=== PATIENT | male | born 1930 | race Caucasian/White ===

== ENCOUNTER 2016-09-21 14:48 | Inpatient (IN) | payer OTHER ==
[~2016-09-21] VITALS: Ht 188 cm; Wt 78.0 kg
[2016-09-21 15:01] VITALS: BP_SYST 86
[2016-09-21] MEDS ORDERED: NS 500 ML IV ONE ×2 (15:15→17:30)
[2016-09-21 15:32] LABS: ANION GAP 7 (5-15); BASOPHILS # (AUTO) 0.1 K/uL (0.0-0.2); BASOPHILS % (AUTO) 0.3 % (0.0-2.0); CALCIUM 8.8 mg/dL (8.4-11.0); CHLORIDE 103 mmol/L (98-107); CREATININE 3.03 mg/dL (0.55-1.30); GLUCOSE 131 mg/dL (70-99); HEMATOCRIT 36.1 % (36-54); HEMOGLOBIN 12.3 g/dL (14.0-18.0); LYMPHOCYTES # (AUTO) 1.7 K/uL (1.0-5.5); LYMPHOCYTES % (AUTO) 8.5 % (20.5-51.5); MEAN CORPUSCULAR HEMOGLOBIN 31 pg (27-31); MEAN CORPUSCULAR HGB CONC 34 % (32-36); MEAN CORPUSCULAR VOLUME 90 fL (79.0-98.0); MONOCYTES # (AUTO) 0.8 K/uL (0.0-1.0); MONOCYTES % (AUTO) 4.2 % (1.7-9.3); NEUTROPHILS # (AUTO) 17.1 K/uL (1.8-7.7); PLATELET COUNT (AUTO) 191 K/uL (130-430); POTASSIUM 4.1 mmol/L (3.5-5.1); RED BLOOD CELL COUNT(AUTO) 4.02 MIL/uL (4.2-6.2); RED CELL DISTRIBUTION WIDTH 14.3 % (9.0-15.0); SODIUM SERUM 142 mmol/L (136-145); UREA NITROGEN, BLOOD 62 mg/dL (8-21); WHITE BLOOD COUNT (AUTO) 19.7 K/uL (4.8-10.8)
[2016-09-21 15:36] LABS: INR 1.1 (0.80-1.20)
[2016-09-21 15:41] LABS: ALANINE AMINOTRANSFERASE 13 U/L (12-78); ALBUMIN 2.5 g/dL (3.4-4.8); AMYLASE 267 U/L (0-100); ASPARTATE AMINOTRANSFERASE 24 U/L (10-37); LIPASE 455 U/L (73-393); TOTAL BILIRUBIN 0.7 mg/dL (0.0-1.0); TOTAL PROTEIN, SERUM 6.2 g/dL (6.4-8.3)
[2016-09-21] MEDS ORDERED: cefTRIAXone 1 GM in D5W 50 ML IV ONE (16:00)
[2016-09-21 16:01] LABS: BILIRUBIN,URINE 1+ (NEGATIVE); CLARITY/URINE HAZY (CLEAR); COLOR,URINE YELLOW (YELLOW); GLUCOSE,URINE NEGATIVE (NEGATIVE); KETONES,URINE TRACE (NEGATIVE); LEUKOCYTE ESTERASE ,URINE NEGATIVE (NEGATIVE); NITRITE, URINE NEGATIVE (NEGATIVE); PROTEIN URINE TRACE (NEGATIVE); UROBILINOGEN,URINE 0.2 (0.2-1.0)
[2016-09-21 16:12] LABS: BLOOD, URINE TRACE (NEGATIVE)
[2016-09-21 16:36] LABS: BACTERIA,URINE FEW /HPF (None Seen); CALCIUM OXALATE CRYSTALS,UR 0-10 /HPF (None Seen); HYALINE CASTS, URINE 0-10 /LPF (None Seen); WBC,URINE 0-3 /HPF (0-3)
[2016-09-21] MEDS ORDERED: cefTRIAXone 1 GM VIAL ONE (16:48)
[2016-09-21] MEDS ORDERED: NACL 0.9% 1,000 ML IV ONE (17:30)
[2016-09-21] MEDS ORDERED: HYOS0.1275 PO (17:42)
[2016-09-21] MEDS ORDERED: ATEN50TA PO (17:42)
[2016-09-21] MEDS ORDERED: NEU300 PO (17:42)
[2016-09-21] MEDS ORDERED: LIP10 PO (17:42)
[2016-09-21] MEDS ORDERED: MEMA10TA21 PO (17:42)
[2016-09-21] MEDS ORDERED: FURO-150 PO (17:42)
[2016-09-21] MEDS ORDERED: CEL20 PO (17:44)
[2016-09-21 18:25] VITALS: BP_SYST 104
[2016-09-21] MEDS ORDERED: MORPHINE 2 MG/ML INJ. SYRINGE IVP PRN (20:15)
[2016-09-21] MEDS ORDERED: LEVOFLOXACIN 500 MG/D5W 100 ML IV SCH (20:15)
[2016-09-21] MEDS ORDERED: ONDANSETRON HCL 4 MG/2 ML VIAL IVP PRN (20:15)
[2016-09-21] MEDS ORDERED: ACETAMINOPHEN 325 MG TABLET PO PRN (20:15)
[2016-09-21] MEDS ORDERED: LEVOFLOXACIN 500 MG/D5W 100 ML IV ONE (21:35)
[2016-09-21] MEDS ORDERED: metroNIDAZOLE 500 mg/NS 200 ML IV ONE (21:35)
[2016-09-21] MEDS: D5NS 1,000 ML IV SCH (21:46)
[2016-09-21] MEDS: GABAPENTIN 300 MG CAPSULE PO SCH (21:46)
[2016-09-21] MEDS: metroNIDAZOLE 500 mg/NS 100 ML IV SCH ×2 (22:00→22:57)
[2016-09-21 23:03] VITALS: BP_SYST 129
[2016-09-22] VITALS (7 sets, daily range): BP systolic 109–145
[2016-09-22] MEDS: metroNIDAZOLE 500 mg/NS 100 ML IV SCH ×3 (06:22→22:10)
[2016-09-22] MEDS: D5NS 1,000 ML IV SCH ×3 (06:22→20:13)
[2016-09-22] MEDS: ATORVASTATIN 10 MG TABLET PO SCH (08:39)
[2016-09-22] MEDS: CITALOPRAM HYDROBROMIDE 20 MG TABLET PO SCH (08:39)
[2016-09-22] MEDS: ATENOLOL 50 MG TABLET (TENORMIN) PO SCH (08:40)
[2016-09-22] MEDS: GABAPENTIN 300 MG CAPSULE PO SCH ×2 (08:40→20:13)
[2016-09-22 09:29] LABS: BASOPHILS % (AUTO) 0.1 % (0.0-2.0); EOSINOPHILS # (AUTO) 0.2 K/uL (0.0-0.4); EOSINOPHILS % (AUTO) 1.5 % (0.0-4.0); HEMATOCRIT 37.6 % (36-54); HEMOGLOBIN 12.4 g/dL (14.0-18.0); LYMPHOCYTES # (AUTO) 0.7 K/uL (1.0-5.5); LYMPHOCYTES % (AUTO) 4.6 % (20.5-51.5); MEAN CORPUSCULAR HEMOGLOBIN 30 pg (27-31); MEAN CORPUSCULAR HGB CONC 33 % (32-36); MEAN CORPUSCULAR VOLUME 91 fL (79.0-98.0); MONOCYTES # (AUTO) 0.9 K/uL (0.0-1.0); MONOCYTES % (AUTO) 6.1 % (1.7-9.3); NEUTROPHILS # (AUTO) 12.7 K/uL (1.8-7.7); NEUTROPHILS % (AUTO) 87.7 % (40.0-70.0); PLATELET COUNT (AUTO) 183 K/uL (130-430); RED BLOOD CELL COUNT(AUTO) 4.14 MIL/uL (4.2-6.2); RED CELL DISTRIBUTION WIDTH 14.2 % (9.0-15.0); WHITE BLOOD COUNT (AUTO) 14.5 K/uL (4.8-10.8)
[2016-09-22 09:30] LABS: ANION GAP 6 (5-15); CALCIUM 8.1 mg/dL (8.4-11.0); CHLORIDE 100 mmol/L (98-107); CREATININE 2.44 mg/dL (0.55-1.30); GLUCOSE 186 mg/dL (70-99); POTASSIUM 3.3 mmol/L (3.5-5.1); SODIUM SERUM 136 mmol/L (136-145); UREA NITROGEN, BLOOD 61 mg/dL (8-21)
[2016-09-22 09:34] LABS: ALANINE AMINOTRANSFERASE 21 U/L (12-78); ALBUMIN 2.5 g/dL (3.4-4.8); AMYLASE 104 U/L (0-100); ASPARTATE AMINOTRANSFERASE 41 U/L (10-37); LIPASE 299 U/L (73-393); TOTAL BILIRUBIN 0.6 mg/dL (0.0-1.0); TOTAL PROTEIN, SERUM 6.3 g/dL (6.4-8.3)
[2016-09-22] MEDS: PIPERACILLIN/TAZO 3.375/DEX-IS 50 ML IV SCH ×3 (11:03→17:40)
[2016-09-22] MEDS: INSULIN REGULAR, HUMAN 100 UNITS/ML, 10 ML VIAL (novoLIN R) SUBCUT PRN (11:27)
[2016-09-22] MEDS: LEVOFLOXACIN 250 MG/D5W 50 ML IV SCH (20:13)
[2016-09-23] MEDS: PIPERACILLIN/TAZO 3.375/DEX-IS 50 ML IV SCH ×2 (00:29→05:31)
[2016-09-23 04:08] VITALS: BP_SYST 129
[2016-09-23] MEDS: metroNIDAZOLE 500 mg/NS 100 ML IV SCH ×3 (06:40→22:05)
[2016-09-23 08:05] VITALS: BP_SYST 130
[2016-09-23] MEDS: CITALOPRAM HYDROBROMIDE 20 MG TABLET PO SCH (08:24)
[2016-09-23] MEDS: ATORVASTATIN 10 MG TABLET PO SCH (08:24)
[2016-09-23] MEDS: GABAPENTIN 300 MG CAPSULE PO SCH ×2 (08:24→20:53)
[2016-09-23] MEDS: ATENOLOL 50 MG TABLET (TENORMIN) PO SCH (08:25)
[2016-09-23 09:07] LABS: BASOPHILS % (AUTO) 0.2 % (0.0-2.0); EOSINOPHILS # (AUTO) 0.1 K/uL (0.0-0.4); EOSINOPHILS % (AUTO) 0.7 % (0.0-4.0); HEMATOCRIT 34.9 % (36-54); HEMOGLOBIN 11.6 g/dL (14.0-18.0); LYMPHOCYTES # (AUTO) 0.7 K/uL (1.0-5.5); LYMPHOCYTES % (AUTO) 5.6 % (20.5-51.5); MEAN CORPUSCULAR HEMOGLOBIN 30 pg (27-31); MEAN CORPUSCULAR HGB CONC 33 % (32-36); MEAN CORPUSCULAR VOLUME 91 fL (79.0-98.0); MONOCYTES # (AUTO) 0.8 K/uL (0.0-1.0); MONOCYTES % (AUTO) 6.2 % (1.7-9.3); NEUTROPHILS # (AUTO) 10.6 K/uL (1.8-7.7); NEUTROPHILS % (AUTO) 87.3 % (40.0-70.0); PLATELET COUNT (AUTO) 167 K/uL (130-430); RED BLOOD CELL COUNT(AUTO) 3.85 MIL/uL (4.2-6.2); RED CELL DISTRIBUTION WIDTH 13.9 % (9.0-15.0); WHITE BLOOD COUNT (AUTO) 12.2 K/uL (4.8-10.8)
[2016-09-23 09:09] LABS: ANION GAP 5 (5-15); CHLORIDE 104 mmol/L (98-107); CREATININE 2.03 mg/dL (0.55-1.30); GLUCOSE 224 mg/dL (70-99); SODIUM SERUM 138 mmol/L (136-145); UREA NITROGEN, BLOOD 52 mg/dL (8-21)
[2016-09-23 09:14] LABS: ALANINE AMINOTRANSFERASE 27 U/L (12-78); ALBUMIN 2.3 g/dL (3.4-4.8); ASPARTATE AMINOTRANSFERASE 48 U/L (10-37); TOTAL BILIRUBIN 0.7 mg/dL (0.0-1.0)
[2016-09-23] MEDS: D5NS 1,000 ML IV SCH (09:30)
[2016-09-23] MEDS: INSULIN REGULAR, HUMAN 100 UNITS/ML, 10 ML VIAL (novoLIN R) SUBCUT PRN (12:04)
[2016-09-23 12:25] VITALS: BP_SYST 138
[2016-09-23] MEDS ORDERED: POTASSIUM CHLORIDE 20 MEQ TAB.PRT.SR PO ONE (14:00)
[2016-09-23] MEDS ORDERED: DIATR MEGLU/DIATRIZ SOD 30 ML SOLUTION PO ONE (15:08)
[2016-09-23 16:00] VITALS: BP_SYST 146
[2016-09-23 19:30] VITALS: BP_SYST 148
[2016-09-23] MEDS: LEVOFLOXACIN 250 MG/D5W 50 ML IV SCH (20:52)
[2016-09-24] VITALS: BP_SYST 134
[2016-09-24] MEDS: D5NS 1,000 ML IV SCH ×3 (02:51→17:13)
[2016-09-24 03:42] VITALS: BP_SYST 144
[2016-09-24] MEDS: metroNIDAZOLE 500 mg/NS 100 ML IV SCH ×3 (05:30→21:15)
[2016-09-24 08:00] VITALS: BP_SYST 152
[2016-09-24 09:38] LABS: ANION GAP 7 (5-15); CHLORIDE 105 mmol/L (98-107); CREATININE 1.54 mg/dL (0.55-1.30); GLUCOSE 271 mg/dL (70-99); POTASSIUM 3.1 mmol/L (3.5-5.1); SODIUM SERUM 139 mmol/L (136-145); UREA NITROGEN, BLOOD 35 mg/dL (8-21)
[2016-09-24] MEDS: ATORVASTATIN 10 MG TABLET PO SCH (10:08)
[2016-09-24] MEDS: GABAPENTIN 300 MG CAPSULE PO SCH ×2 (10:08→21:08)
[2016-09-24] MEDS: ATENOLOL 50 MG TABLET (TENORMIN) PO SCH (10:09)
[2016-09-24] MEDS: CITALOPRAM HYDROBROMIDE 20 MG TABLET PO SCH (10:09)
[2016-09-24] MEDS: NEOMY SULF/BACITRAC ZN/POLY 14.2 GM OINT..GM. TP SCH (10:15)
[2016-09-24] MEDS: ceFAZolin SODIUM 1 GM in D5W 50 ML IV SCH ×2 (11:47→21:08)
[2016-09-24] MEDS: INSULIN REGULAR, HUMAN 100 UNITS/ML, 10 ML VIAL (novoLIN R) SUBCUT PRN (12:01)
[2016-09-24 12:17] VITALS: BP_SYST 139
[2016-09-24 16:44] VITALS: BP_SYST 135
[2016-09-24] MEDS ORDERED: POTASSIUM CHLORIDE 20 MEQ TAB.PRT.SR PO ONE (19:45)
[2016-09-24 19:50] VITALS: BP_SYST 140
[2016-09-25] VITALS: BP_SYST 147
[2016-09-25 04:00] VITALS: BP_SYST 164
[2016-09-25] MEDS: D5NS 1,000 ML IV SCH ×2 (04:27→11:18)
[2016-09-25] MEDS: metroNIDAZOLE 500 mg/NS 100 ML IV SCH ×2 (05:26→14:42)
[2016-09-25] MEDS: INSULIN REGULAR, HUMAN 100 UNITS/ML, 10 ML VIAL (novoLIN R) SUBCUT PRN (06:35)
[2016-09-25 07:14] LABS: BASOPHILS % (AUTO) 0.2 % (0.0-2.0); EOSINOPHILS # (AUTO) 0.1 K/uL (0.0-0.4); HEMATOCRIT 33.3 % (36-54); HEMOGLOBIN 11.1 g/dL (14.0-18.0); LYMPHOCYTES # (AUTO) 0.9 K/uL (1.0-5.5); LYMPHOCYTES % (AUTO) 6.4 % (20.5-51.5); MEAN CORPUSCULAR HEMOGLOBIN 30 pg (27-31); MEAN CORPUSCULAR HGB CONC 33 % (32-36); MEAN CORPUSCULAR VOLUME 90 fL (79.0-98.0); MONOCYTES # (AUTO) 1.1 K/uL (0.0-1.0); MONOCYTES % (AUTO) 7.9 % (1.7-9.3); NEUTROPHILS # (AUTO) 11.2 K/uL (1.8-7.7); NEUTROPHILS % (AUTO) 84.5 % (40.0-70.0); PLATELET COUNT (AUTO) 179 K/uL (130-430); RED BLOOD CELL COUNT(AUTO) 3.71 MIL/uL (4.2-6.2); RED CELL DISTRIBUTION WIDTH 14.1 % (9.0-15.0); WHITE BLOOD COUNT (AUTO) 13.3 K/uL (4.8-10.8)
[2016-09-25 07:26] LABS: ALANINE AMINOTRANSFERASE 19 U/L (12-78); AMYLASE 64 U/L (0-100); ANION GAP 5 (5-15); ASPARTATE AMINOTRANSFERASE 24 U/L (10-37); CHLORIDE 108 mmol/L (98-107); CREATININE 1.27 mg/dL (0.55-1.30); GLUCOSE 157 mg/dL (70-99); LACTATE DEHYDROGENASE 207 U/L (85-227); LIPASE 407 U/L (73-393); POTASSIUM 3.7 mmol/L (3.5-5.1); SODIUM SERUM 139 mmol/L (136-145); TOTAL BILIRUBIN 0.3 mg/dL (0.0-1.0); TOTAL PROTEIN, SERUM 5.4 g/dL (6.4-8.3); UREA NITROGEN, BLOOD 28 mg/dL (8-21)
[2016-09-25 08:00] VITALS: BP_SYST 173
[2016-09-25] MEDS: ATORVASTATIN 10 MG TABLET PO SCH (09:31)
[2016-09-25] MEDS: CITALOPRAM HYDROBROMIDE 20 MG TABLET PO SCH (09:31)
[2016-09-25] MEDS: ATENOLOL 50 MG TABLET (TENORMIN) PO SCH (09:32)
[2016-09-25] MEDS: ceFAZolin SODIUM 1 GM in D5W 50 ML IV SCH (09:32)
[2016-09-25] MEDS: GABAPENTIN 300 MG CAPSULE PO SCH (09:32)
[2016-09-25 12:11] VITALS: BP_SYST 128
[2016-09-25] MEDS: NEOMY SULF/BACITRAC ZN/POLY 14.2 GM OINT..GM. TP SCH (14:52)
[2016-09-25 16:20] VITALS: BP_SYST 152
[2016-09-25 20:12] VITALS: BP_SYST 135
[2016-09-28 14:15] LABS: CEA 1.5 ng/mL (0.0-4.7)
== END 2016-09-25 20:52 | DRG 423 ==
LOC: SED 14:48 → STU 17:33
PROVIDERS: ADMIT Internal Medicine Hospice and Palliative Medicine; ATTEND Internal Medicine Hospice and Palliative Medicine
PROC: 0JBQ0ZZ Excision of Right Foot Subcutaneous Tissue and Fascia, Open Approach (ICD-10-PCS; principal; 2016-09-23)
PROC: 0JBR0ZZ Excision of Left Foot Subcutaneous Tissue and Fascia, Open Approach (ICD-10-PCS; 2016-09-23)
DX: K85.90 Acute pancreatitis without necrosis or infection, unspecified (principal); J69.0 Pneumonitis due to inhalation of food and vomit; L97.429 Non-pressure chronic ulcer of left heel and midfoot with unspecified severity; L03.116 Cellulitis of left lower limb; E11.621 Type 2 diabetes mellitus with foot ulcer; L89.612 Pressure ulcer of right heel, stage 2; L97.519 Non-pressure chronic ulcer of other part of right foot with unspecified severity; D64.9 Anemia, unspecified; E11.22 Type 2 diabetes mellitus with diabetic chronic kidney disease; K74.60 Unspecified cirrhosis of liver; N18.9 Chronic kidney disease, unspecified; E11.40 Type 2 diabetes mellitus with diabetic neuropathy, unspecified; I12.9 Hypertensive chronic kidney disease with stage 1 through stage 4 chronic kidney disease, or unspecified chronic kidney disease; F03.90 Unspecified dementia, unspecified severity, without behavioral disturbance, psychotic disturbance, mood disturbance, and anxiety; Z86.73 Personal history of transient ischemic attack (TIA), and cerebral infarction without residual deficits; Z79.899 Other long term (current) drug therapy
CPT/HCPCS: 36415; 71010; 71250-TC; 76700-TC; 80048; 80053; 81000-TC; 82150-TC; 82378; 82787; 82962; 83605; 83615-TC; 83690-TC; 84484; 85025; 85610-TC; 86038; 86301; 87040-TC; 87045-TC; 87046; 87081; 87230-TC; 93005; 93880; 93923; 96361; 96365; 97116-GP; 99285; J0690; J0696; J1956; J2543; J3490; J7040; J7042; J7060; Q9964

== ENCOUNTER 2016-12-11 19:08 | Emergency (ER) | payer OTHER ==
[~2016-12-11] VITALS: Ht 188 cm; Wt 77.1 kg
[~2016-12-11 19:08] MED LIST: ATEN50TA PO; CEL20 PO; FURO-150 PO; HYOS0.1275 PO; LIP10 PO; MEMA10TA21 PO; NEU300 PO
[2016-12-11 19:40] VITALS: BP_SYST 174
--- NOTE | 2016-12-11 19:40 | NUR ---
Patient to ER bed 2 to gown for evaluation. Side rails up. Report given to BIBI POLK.
--- NOTE | 2016-12-11 19:45 | NUR ---
Patient AAOx4, ambulatory with steady gait. Patient states he has "painless skin openings in both his feet". On left foot, less than 1 cm skin breakdown noted to first digit. No active bleeding noted. Less than 1 cm skin breakdown noted to second digit of left foot. No active bleeding noted. 1 cm in diameter skin breakdown noted to posterior left heel. No active bleeding noted. On right foot, less than 1 cm skin breakdown noted to first digit. No active bleeding noted. Less than 1 cm skin breakdown noted to second digit. No active bleeding noted. Skin breakdown less than 1 cm diameter noted to anterior foot. Less than 1 cm skin breakdown noted to anterior left leg. No active bleeding noted. 1 cm skin breakdown noted to posterior right heel. No active bleeding noted.
--- NOTE | 2016-12-11 20:00 | NUR ---
BETSY Marie at bedside examining patient.
--- NOTE | 2016-12-11 21:40 | NUR ---
Patient stable, no signs of distress noted. Vital signs within therapeutic range. Will continue to monitor.
[2016-12-11] MEDS ORDERED: BACITRACIN/POLYMYXIN B SULFATE 30 GM TOPICAL OINT. TP SCH (21:45)
[2016-12-11 22:25] VITALS: BP_SYST 165
--- NOTE | 2016-12-11 22:25 | NUR ---
Patient to be transferred back to [facility]. Is being transferred due to patient being medically cleared for discharge. Receiving facility has accepting physician and available space. Responsible alliance party has agreed to transfer and signed form. Patient belongings inventoried and will be sent with patient. Copy of nursing notes to be sent with patient. Report called to receiving facility. Ambulance service has been called for transfer. Paramedics at bedside. Wristband removed, IV catheter removed, site reinforced with gauze and tape. Patient tolerated well. Patient pain scale 0/10.
== END 2016-12-11 22:25 | disposition home or self-care (01) ==
LOC: SED 19:08
DX: S90.812A Abrasion, left foot, initial encounter (principal); I10 Essential (primary) hypertension; E11.9 Type 2 diabetes mellitus without complications; F03.90 Unspecified dementia, unspecified severity, without behavioral disturbance, psychotic disturbance, mood disturbance, and anxiety; X58.XXXA Exposure to other specified factors, initial encounter; Y93.89 Activity, other specified; Y92.89 Other specified places as the place of occurrence of the external cause; Y99.8 Other external cause status
CPT/HCPCS: 99283

== ENCOUNTER 2017-01-25 18:04 | Inpatient (IN) | payer OTHER ==
[~2017-01-25] VITALS: Ht 188 cm; Wt 76.7 kg
[2017-01-25 18:10] VITALS: BP_SYST 148
[2017-01-25 18:54] LABS: BASOPHILS # (AUTO) 0.1 K/uL (0.0-0.2); BASOPHILS % (AUTO) 0.5 % (0.0-2.0); EOSINOPHILS # (AUTO) 0.7 K/uL (0.0-0.4); EOSINOPHILS % (AUTO) 6.6 % (0.0-4.0); HEMOGLOBIN 12.3 g/dL (14.0-18.0); LYMPHOCYTES # (AUTO) 1.6 K/uL (1.0-5.5); LYMPHOCYTES % (AUTO) 15.9 % (20.5-51.5); MEAN CORPUSCULAR HEMOGLOBIN 30 pg (27-31); MEAN CORPUSCULAR HGB CONC 33 % (32-36); MEAN CORPUSCULAR VOLUME 90 fL (79.0-98.0); MONOCYTES # (AUTO) 0.9 K/uL (0.0-1.0); MONOCYTES % (AUTO) 8.9 % (1.7-9.3); NEUTROPHILS # (AUTO) 6.8 K/uL (1.8-7.7); NEUTROPHILS % (AUTO) 68.1 % (40.0-70.0); PLATELET COUNT (AUTO) 256 K/uL (130-430); RED BLOOD CELL COUNT(AUTO) 4.09 MIL/uL (4.2-6.2); RED CELL DISTRIBUTION WIDTH 13.9 % (9.0-15.0); WHITE BLOOD COUNT (AUTO) 10.1 K/uL (4.8-10.8)
[2017-01-25 19:08] LABS: ANION GAP 7 (5-15); CALCIUM 9.1 mg/dL (8.4-11.0); CHLORIDE 103 mmol/L (98-107); CREATININE 1.24 mg/dL (0.55-1.30); GLUCOSE 161 mg/dL (70-99); POTASSIUM 3.8 mmol/L (3.5-5.1); SODIUM SERUM 141 mmol/L (136-145); UREA NITROGEN, BLOOD 21 mg/dL (8-21)
[2017-01-25 19:14] LABS: ALANINE AMINOTRANSFERASE 19 U/L (12-78); ALBUMIN 2.7 g/dL (3.4-4.8); ASPARTATE AMINOTRANSFERASE 25 U/L (10-37); INR 1.1 (0.80-1.20); PROTHROMBIN TIME 11.6 SECS (9.5-12.5); TOTAL BILIRUBIN 0.3 mg/dL (0.0-1.0)
[2017-01-25] MEDS ORDERED: FUROSEMIDE 40 MG/4 ML VIAL IVP ONE (20:45)
[2017-01-25] MEDS ORDERED: LACT100C2 PO (21:04)
[2017-01-25 21:26] VITALS: BP_SYST 155
[2017-01-25] MEDS ORDERED: VANCOMYCIN HCL 1 GM/NS PREMIX 250 ML IV ONE (22:00)
[2017-01-25] MEDS ORDERED: VANCOMYCIN HCL 1000 MG/VIAL IV ONE (22:11)
[2017-01-26] VITALS: BP_SYST 144
[2017-01-26 04:42] VITALS: BP_SYST 160
[2017-01-26 08:44] VITALS: BP_SYST 157
[2017-01-26] MEDS ORDERED: FUROSEMIDE 20 MG TABLET PO SCH (09:00)
[2017-01-26] MEDS: ATORVASTATIN 10 MG TABLET PO SCH (09:37)
[2017-01-26] MEDS: GABAPENTIN 300 MG CAPSULE PO SCH ×2 (09:37→22:05)
[2017-01-26] MEDS: CITALOPRAM HYDROBROMIDE 20 MG TABLET PO SCH (09:38)
[2017-01-26] MEDS: ATENOLOL 50 MG TABLET (TENORMIN) PO SCH (09:39)
[2017-01-26 11:33] VITALS: BP_SYST 142
[2017-01-26] MEDS ORDERED: BALSAM PERU/CASTOR OIL 60 GM OINT...G. TP SCH (15:30)
[2017-01-26 15:47] VITALS: BP_SYST 122
[2017-01-26 20:00] VITALS: BP_SYST 123
[2017-01-26] MEDS ORDERED: ENOXAPARIN SODIUM 40 MG/0.4 ML SYRINGE SUBCUT SCH (21:00)
[2017-01-26 21:15] LABS: BF APPEARANCE UNSPUN BLOODY (CLEAR); BODY FLUID SOURCE/ TYPE PLEURAL; SOURCE/TYPE ,BODY FLUID THORACENTESIS
[2017-01-26 21:16] LABS: BODY FLUID COLOR RED (LT YELLOW); BODY FLUID TOTAL VOLUME 310 mL; RBC, BODY FLUID 65066 /uL; WBC, BODY FLUID 1042 /uL
[2017-01-26 21:17] LABS: EOSINOPHIL, BODY FLUID 56 %; LYMPHOCYTES, BODY FLUID 8 %; MONOCYTES,BODY FLUID 21 %; NEUTROPHIL, BODY FLUID 15 %
[2017-01-26 22:01] LABS: APPEARANCE,SPUN,BODY FLUID CLEAR (CLEAR)
[2017-01-26 22:07] LABS: BODY FLUID OTHER CELLS SECOM %
[2017-01-26] MEDS: VANCOMYCIN HCL 1,500 MG in NS 250 ML IV SCH (22:08)
[2017-01-26 22:28] LABS: BODY FLUID GLUCOSE 119 mg/dL; BODY FLUID TOTAL PROTEIN 3.7 g/dL
[2017-01-27 01:09] VITALS: BP_SYST 122
[2017-01-27 03:18] VITALS: BP_SYST 120
[2017-01-27 07:34] LABS: BASOPHILS % (AUTO) 0.4 % (0.0-2.0); EOSINOPHILS # (AUTO) 0.7 K/uL (0.0-0.4); EOSINOPHILS % (AUTO) 8.1 % (0.0-4.0); HEMATOCRIT 34.9 % (36-54); HEMOGLOBIN 11.8 g/dL (14.0-18.0); LYMPHOCYTES # (AUTO) 2.1 K/uL (1.0-5.5); MEAN CORPUSCULAR HEMOGLOBIN 31 pg (27-31); MEAN CORPUSCULAR HGB CONC 34 % (32-36); MEAN CORPUSCULAR VOLUME 90 fL (79.0-98.0); MONOCYTES # (AUTO) 0.8 K/uL (0.0-1.0); MONOCYTES % (AUTO) 9.3 % (1.7-9.3); NEUTROPHILS # (AUTO) 4.9 K/uL (1.8-7.7); NEUTROPHILS % (AUTO) 57.2 % (40.0-70.0); PLATELET COUNT (AUTO) 205 K/uL (130-430); RED BLOOD CELL COUNT(AUTO) 3.87 MIL/uL (4.2-6.2); RED CELL DISTRIBUTION WIDTH 13.6 % (9.0-15.0); WHITE BLOOD COUNT (AUTO) 8.5 K/uL (4.8-10.8)
[2017-01-27 07:35] LABS: ANION GAP 4 (5-15); CALCIUM 8.7 mg/dL (8.4-11.0); CHLORIDE 106 mmol/L (98-107); CREATININE 0.93 mg/dL (0.55-1.30); GLUCOSE 95 mg/dL (70-99); POTASSIUM 3.4 mmol/L (3.5-5.1); SODIUM SERUM 141 mmol/L (136-145); UREA NITROGEN, BLOOD 17 mg/dL (8-21)
[2017-01-27 07:42] LABS: ALBUMIN 2.3 g/dL (3.4-4.8); ASPARTATE AMINOTRANSFERASE 20 U/L (10-37); TOTAL BILIRUBIN 0.4 mg/dL (0.0-1.0)
[2017-01-27 08:01] LABS: ALANINE AMINOTRANSFERASE 15 U/L (12-78)
[2017-01-27] MEDS: FUROSEMIDE 20 MG/2 ML VIAL IVP SCH (09:38)
[2017-01-27] MEDS: GABAPENTIN 300 MG CAPSULE PO SCH ×2 (10:30→22:09)
[2017-01-27] MEDS ORDERED: *LOVENOX 1MG/KG Q12H/PHARMACY XX PRN (10:30)
[2017-01-27] MEDS: ATENOLOL 50 MG TABLET (TENORMIN) PO SCH (10:31)
[2017-01-27] MEDS: CITALOPRAM HYDROBROMIDE 20 MG TABLET PO SCH (10:32)
[2017-01-27] MEDS: ATORVASTATIN 10 MG TABLET PO SCH (10:33)
[2017-01-27] MEDS: BALSAM PERU/CASTOR OIL 60 GM OINT...G. TP SCH (10:42)
[2017-01-27] MEDS ORDERED: POTASSIUM CHLORIDE 20 MEQ TAB.PRT.SR PO ONE (10:45)
[2017-01-27 11:56] VITALS: BP_SYST 147
[2017-01-27] MEDS: ENOXAPARIN SODIUM 80 MG/0.8 ML SYRINGE SUBCUT SCH (12:00)
[2017-01-27] MEDS ORDERED: ENOXAPARIN SODIUM 80 MG/0.8 ML SYRINGE SUBCUT ONE (12:00)
[2017-01-27 16:20] VITALS: BP_SYST 155
[2017-01-27 20:00] VITALS: BP_SYST 157
[2017-01-27] MEDS: VANCOMYCIN HCL 1,500 MG in NS 250 ML IV SCH (22:11)
[2017-01-28] MEDS: ENOXAPARIN SODIUM 80 MG/0.8 ML SYRINGE SUBCUT SCH ×2 (00:17→12:56)
[2017-01-28 00:28] VITALS: BP_SYST 168
[2017-01-28 01:00] VITALS: BP_SYST 149
[2017-01-28 05:34] VITALS: BP_SYST 140
[2017-01-28 07:17] LABS: BASOPHILS % (AUTO) 0.5 % (0.0-2.0); EOSINOPHILS # (AUTO) 0.8 K/uL (0.0-0.4); EOSINOPHILS % (AUTO) 11.2 % (0.0-4.0); HEMATOCRIT 33.1 % (36-54); HEMOGLOBIN 11.3 g/dL (14.0-18.0); LYMPHOCYTES # (AUTO) 1.5 K/uL (1.0-5.5); LYMPHOCYTES % (AUTO) 21.2 % (20.5-51.5); MEAN CORPUSCULAR HEMOGLOBIN 30 pg (27-31); MEAN CORPUSCULAR HGB CONC 34 % (32-36); MEAN CORPUSCULAR VOLUME 89 fL (79.0-98.0); MONOCYTES # (AUTO) 0.7 K/uL (0.0-1.0); MONOCYTES % (AUTO) 10.7 % (1.7-9.3); NEUTROPHILS # (AUTO) 3.9 K/uL (1.8-7.7); NEUTROPHILS % (AUTO) 56.4 % (40.0-70.0); PLATELET COUNT (AUTO) 196 K/uL (130-430); RED BLOOD CELL COUNT(AUTO) 3.72 MIL/uL (4.2-6.2); RED CELL DISTRIBUTION WIDTH 13.5 % (9.0-15.0); WHITE BLOOD COUNT (AUTO) 6.9 K/uL (4.8-10.8)
[2017-01-28 07:24] LABS: ALANINE AMINOTRANSFERASE 11 U/L (12-78); ALBUMIN 2.1 g/dL (3.4-4.8); ANION GAP 4 (5-15); ASPARTATE AMINOTRANSFERASE 18 U/L (10-37); CHLORIDE 103 mmol/L (98-107); CREATININE 0.83 mg/dL (0.55-1.30); GLUCOSE 88 mg/dL (70-99); POTASSIUM 3.8 mmol/L (3.5-5.1); SODIUM SERUM 139 mmol/L (136-145); TOTAL BILIRUBIN 0.5 mg/dL (0.0-1.0); UREA NITROGEN, BLOOD 17 mg/dL (8-21)
[2017-01-28 08:00] VITALS: BP_SYST 183
[2017-01-28] MEDS: FUROSEMIDE 20 MG/2 ML VIAL IVP SCH (08:49)
[2017-01-28] MEDS: GABAPENTIN 300 MG CAPSULE PO SCH ×2 (08:50→21:24)
[2017-01-28] MEDS: ATORVASTATIN 10 MG TABLET PO SCH (08:50)
[2017-01-28] MEDS: CITALOPRAM HYDROBROMIDE 20 MG TABLET PO SCH (08:50)
[2017-01-28] MEDS: ATENOLOL 50 MG TABLET (TENORMIN) PO SCH (08:50)
[2017-01-28] MEDS: BALSAM PERU/CASTOR OIL 60 GM OINT...G. TP SCH (09:00)
[2017-01-28 12:43] VITALS: BP_SYST 129
[2017-01-28] MEDS ORDERED: fentaNYL CITRATE/PF 100 MCG/2 ML AMP IVP ONE (14:20)
[2017-01-28] MEDS ORDERED: MIDAZOLAM HCL 5 MG/5 ML VIAL IVP ONE (14:20)
[2017-01-28] MEDS ORDERED: LR 1,000 ML IV.SOLN IV ONE (14:20)
[2017-01-28] MEDS ORDERED: PROPOFOL 200MG/ 20ML VIAL (DIPRIVAN) IV ONE (14:20)
[2017-01-28] MEDS ORDERED: NS IRRIG SOLN 1000 ML IR ONE (14:20)
[2017-01-28] MEDS ORDERED: SEVOFLURANE 15 MIN GAS INH ONE (14:20)
[2017-01-28 14:33] LABS: BILIRUBIN,URINE NEGATIVE (NEGATIVE); BLOOD, URINE 2+ (NEGATIVE); CLARITY/URINE CLEAR (CLEAR); COLOR,URINE YELLOW (YELLOW); GLUCOSE,URINE NEGATIVE (NEGATIVE); KETONES,URINE NEGATIVE (NEGATIVE); LEUKOCYTE ESTERASE ,URINE NEGATIVE (NEGATIVE); NITRITE, URINE NEGATIVE (NEGATIVE); PROTEIN URINE NEGATIVE (NEGATIVE); UROBILINOGEN,URINE 0.2 (0.2-1.0)
[2017-01-28] MEDS ORDERED: LR 1,000 ML IV SCH (14:57)
[2017-01-28] MEDS ORDERED: ONDANSETRON HCL 4 MG/2 ML VIAL IVP PRN (15:00)
[2017-01-28] MEDS ORDERED: MORPHINE 4 MG/ML INJ. SYRINGE IVP PRN ×3 (15:00)
[2017-01-28 15:12] LABS: BACTERIA,URINE MODERATE /HPF (None Seen); MUCUS,URINE None Seen /LPF (None Seen); WBC,URINE 0-3 /HPF (0-3)
[2017-01-28] MEDS ORDERED: MORPHINE 4 MG/ML INJ. SYRINGE ONE (16:03)
[2017-01-28 20:00] VITALS: BP_SYST 119
[2017-01-28] MEDS: VANCOMYCIN HCL 1,500 MG in NS 250 ML IV SCH (21:25)
[2017-01-29] VITALS (7 sets, daily range): BP systolic 130–156
[2017-01-29] MEDS: ENOXAPARIN SODIUM 80 MG/0.8 ML SYRINGE SUBCUT SCH ×3 (02:40→23:51)
[2017-01-29 06:15] LABS: BASOPHILS % (AUTO) 0.6 % (0.0-2.0); EOSINOPHILS # (AUTO) 0.7 K/uL (0.0-0.4); EOSINOPHILS % (AUTO) 11.6 % (0.0-4.0); HEMATOCRIT 34.7 % (36-54); HEMOGLOBIN 11.2 g/dL (14.0-18.0); LYMPHOCYTES # (AUTO) 1.3 K/uL (1.0-5.5); LYMPHOCYTES % (AUTO) 21.3 % (20.5-51.5); MEAN CORPUSCULAR HEMOGLOBIN 29 pg (27-31); MEAN CORPUSCULAR HGB CONC 32 % (32-36); MEAN CORPUSCULAR VOLUME 89 fL (79.0-98.0); MONOCYTES # (AUTO) 0.7 K/uL (0.0-1.0); MONOCYTES % (AUTO) 11.3 % (1.7-9.3); NEUTROPHILS # (AUTO) 3.6 K/uL (1.8-7.7); NEUTROPHILS % (AUTO) 55.2 % (40.0-70.0); PLATELET COUNT (AUTO) 212 K/uL (130-430); RED CELL DISTRIBUTION WIDTH 13.1 % (9.0-15.0); WHITE BLOOD COUNT (AUTO) 6.3 K/uL (4.8-10.8)
[2017-01-29 06:44] LABS: ANION GAP 1 (5-15); CALCIUM 9.1 mg/dL (8.4-11.0); CHLORIDE 103 mmol/L (98-107); GLUCOSE 84 mg/dL (70-99); POTASSIUM 3.8 mmol/L (3.5-5.1); SODIUM SERUM 138 mmol/L (136-145); UREA NITROGEN, BLOOD 20 mg/dL (8-21)
[2017-01-29] MEDS: ATORVASTATIN 10 MG TABLET PO SCH (10:15)
[2017-01-29] MEDS: CITALOPRAM HYDROBROMIDE 20 MG TABLET PO SCH (10:15)
[2017-01-29] MEDS: GABAPENTIN 300 MG CAPSULE PO SCH ×2 (10:15→21:02)
[2017-01-29] MEDS: ATENOLOL 50 MG TABLET (TENORMIN) PO SCH (10:16)
[2017-01-29] MEDS: BALSAM PERU/CASTOR OIL 60 GM OINT...G. TP SCH (10:17)
[2017-01-29] MEDS: FUROSEMIDE 20 MG/2 ML VIAL IVP SCH (10:17)
[2017-01-29] MEDS: WARFARIN SODIUM 5 MG TABLET PO SCH (19:06)
[2017-01-29] MEDS: VANCOMYCIN HCL 1,500 MG in NS 250 ML IV SCH (21:03)
[2017-01-30 03:53] VITALS: BP_SYST 137
[2017-01-30 06:26] LABS: ANION GAP 4 (5-15); CALCIUM 9.2 mg/dL (8.4-11.0); CHLORIDE 103 mmol/L (98-107); CREATININE 0.98 mg/dL (0.55-1.30); GLUCOSE 93 mg/dL (70-99); POTASSIUM 3.5 mmol/L (3.5-5.1); SODIUM SERUM 139 mmol/L (136-145); UREA NITROGEN, BLOOD 19 mg/dL (8-21)
[2017-01-30 06:35] LABS: BASOPHILS % (AUTO) 0.5 % (0.0-2.0); EOSINOPHILS # (AUTO) 0.6 K/uL (0.0-0.4); EOSINOPHILS % (AUTO) 8.9 % (0.0-4.0); HEMOGLOBIN 11.6 g/dL (14.0-18.0); LYMPHOCYTES # (AUTO) 1.6 K/uL (1.0-5.5); LYMPHOCYTES % (AUTO) 25.2 % (20.5-51.5); MEAN CORPUSCULAR HEMOGLOBIN 30 pg (27-31); MEAN CORPUSCULAR HGB CONC 33 % (32-36); MEAN CORPUSCULAR VOLUME 90 fL (79.0-98.0); MONOCYTES # (AUTO) 0.7 K/uL (0.0-1.0); MONOCYTES % (AUTO) 10.4 % (1.7-9.3); NEUTROPHILS # (AUTO) 3.6 K/uL (1.8-7.7); PLATELET COUNT (AUTO) 214 K/uL (130-430); RED BLOOD CELL COUNT(AUTO) 3.91 MIL/uL (4.2-6.2); RED CELL DISTRIBUTION WIDTH 13.3 % (9.0-15.0); WHITE BLOOD COUNT (AUTO) 6.5 K/uL (4.8-10.8)
[2017-01-30 07:46] LABS: INR 1.2 (0.80-1.20); PROTHROMBIN TIME 11.9 SECS (9.5-12.5)
[2017-01-30 08:24] VITALS: BP_SYST 149
[2017-01-30] MEDS: ATORVASTATIN 10 MG TABLET PO SCH (08:53)
[2017-01-30] MEDS: CITALOPRAM HYDROBROMIDE 20 MG TABLET PO SCH (08:53)
[2017-01-30] MEDS: ATENOLOL 50 MG TABLET (TENORMIN) PO SCH (08:54)
[2017-01-30] MEDS: GABAPENTIN 300 MG CAPSULE PO SCH ×2 (08:54→21:52)
[2017-01-30] MEDS: BALSAM PERU/CASTOR OIL 60 GM OINT...G. TP SCH (08:54)
[2017-01-30] MEDS: FUROSEMIDE 20 MG/2 ML VIAL IVP SCH (08:55)
[2017-01-30 11:27] VITALS: BP_SYST 136
[2017-01-30] MEDS: ENOXAPARIN SODIUM 80 MG/0.8 ML SYRINGE SUBCUT SCH (12:25)
[2017-01-30 15:07] VITALS: BP_SYST 115
[2017-01-30] MEDS: WARFARIN SODIUM 5 MG TABLET PO SCH (17:29)
[2017-01-30] MEDS: metroNIDAZOLE 250 MG TABLET PO SCH (17:29)
[2017-01-30 20:00] VITALS: BP_SYST 128
[2017-01-30] MEDS: VANCOMYCIN HCL 1,500 MG in NS 250 ML IV SCH (22:34)
[2017-01-30 23:42] VITALS: BP_SYST 142
[2017-01-31] VITALS (7 sets, daily range): BP systolic 119–147
[2017-01-31] MEDS: metroNIDAZOLE 250 MG TABLET PO SCH ×4 (00:28→17:40)
[2017-01-31] MEDS: ENOXAPARIN SODIUM 80 MG/0.8 ML SYRINGE SUBCUT SCH ×2 (00:32→12:30)
[2017-01-31 06:54] LABS: ANION GAP 1 (5-15); CALCIUM 8.7 mg/dL (8.4-11.0); CHLORIDE 105 mmol/L (98-107); CREATININE 1.05 mg/dL (0.55-1.30); GLUCOSE 93 mg/dL (70-99); POTASSIUM 3.5 mmol/L (3.5-5.1); SODIUM SERUM 138 mmol/L (136-145); UREA NITROGEN, BLOOD 20 mg/dL (8-21)
[2017-01-31 06:55] LABS: INR 1.6 (0.80-1.20); PROTHROMBIN TIME 16.1 SECS (9.5-12.5)
[2017-01-31] MEDS: FUROSEMIDE 20 MG/2 ML VIAL IVP SCH (08:37)
[2017-01-31] MEDS: ATORVASTATIN 10 MG TABLET PO SCH (08:38)
[2017-01-31] MEDS: CITALOPRAM HYDROBROMIDE 20 MG TABLET PO SCH (08:38)
[2017-01-31] MEDS: ATENOLOL 50 MG TABLET (TENORMIN) PO SCH (08:38)
[2017-01-31] MEDS: GABAPENTIN 300 MG CAPSULE PO SCH ×2 (08:38→21:04)
[2017-01-31] MEDS: BALSAM PERU/CASTOR OIL 60 GM OINT...G. TP SCH (08:39)
[2017-01-31] MEDS: WARFARIN SODIUM 5 MG TABLET PO SCH (17:42)
[2017-01-31] MEDS: VANCOMYCIN HCL 1,500 MG in NS 250 ML IV SCH (21:45)
[2017-02-01] MEDS: metroNIDAZOLE 250 MG TABLET PO SCH ×3 (00:40→12:48)
[2017-02-01] MEDS: ENOXAPARIN SODIUM 80 MG/0.8 ML SYRINGE SUBCUT SCH (00:42)
[2017-02-01 03:56] VITALS: BP_SYST 148
[2017-02-01 06:41] LABS: INR 2.5 (0.80-1.20)
[2017-02-01] MEDS: FUROSEMIDE 20 MG/2 ML VIAL IVP SCH (09:36)
[2017-02-01] MEDS: GABAPENTIN 300 MG CAPSULE PO SCH (09:36)
[2017-02-01] MEDS: CITALOPRAM HYDROBROMIDE 20 MG TABLET PO SCH (09:36)
[2017-02-01] MEDS: ATORVASTATIN 10 MG TABLET PO SCH (09:37)
[2017-02-01] MEDS: BALSAM PERU/CASTOR OIL 60 GM OINT...G. TP SCH (09:37)
[2017-02-01] MEDS: ATENOLOL 50 MG TABLET (TENORMIN) PO SCH (09:37)
[2017-02-01 11:33] VITALS: BP_SYST 154
[2017-02-01 13:25] VITALS: BP_SYST 154
[2017-02-01 13:46] VITALS: BP_SYST 115
[2017-02-01] MEDS ORDERED: WARFARIN SODIUM 2.5 MG TABLET PO SCH (18:00)
== END 2017-02-01 14:20 | DRG 622 ==
LOC: SED 18:04 → SMU 20:46
PROVIDERS: ADMIT Internal Medicine Hospice and Palliative Medicine; ATTEND Internal Medicine Hospice and Palliative Medicine
PROC: 0W993ZZ Drainage of Right Pleural Cavity, Percutaneous Approach (ICD-10-PCS; 2017-01-27)
PROC: 0JBQ0ZZ Excision of Right Foot Subcutaneous Tissue and Fascia, Open Approach (ICD-10-PCS; 2017-01-28)
PROC: 0JBR0ZZ Excision of Left Foot Subcutaneous Tissue and Fascia, Open Approach (ICD-10-PCS; principal; 2017-01-28 14:45)
DX: E11.621 Type 2 diabetes mellitus with foot ulcer (principal); E43 Unspecified severe protein-calorie malnutrition; L97.429 Non-pressure chronic ulcer of left heel and midfoot with unspecified severity; L97.419 Non-pressure chronic ulcer of right heel and midfoot with unspecified severity; J90 Pleural effusion, not elsewhere classified; I82.403 Acute embolism and thrombosis of unspecified deep veins of lower extremity, bilateral; E11.51 Type 2 diabetes mellitus with diabetic peripheral angiopathy without gangrene; D68.59 Other primary thrombophilia; E87.70 Fluid overload, unspecified; L03.115 Cellulitis of right lower limb; L03.116 Cellulitis of left lower limb; F03.90 Unspecified dementia, unspecified severity, without behavioral disturbance, psychotic disturbance, mood disturbance, and anxiety; I10 Essential (primary) hypertension; E78.5 Hyperlipidemia, unspecified; F32.9 Major depressive disorder, single episode, unspecified; Z86.73 Personal history of transient ischemic attack (TIA), and cerebral infarction without residual deficits; Z87.891 Personal history of nicotine dependence; Z79.899 Other long term (current) drug therapy; Z68.21 Body mass index [BMI] 21.0-21.9, adult
CPT/HCPCS: 32555; 36415; 71010; 80048; 80053; 80202-TC; 81000-TC; 82947-TC; 83605; 83615-TC; 83880; 84157-TC; 84484; 85025; 85610-TC; 85730-TC; 87040-TC; 87070-TC; 87081; 87116; 88108; 88304; 88305; 89051-TC; 89060-TC; 93005; 93923; 93970; 96374; 99285; C1729; J1650; J1940; J2250; J2270; J2704; J3010; J3370; J7040; J7050; J7120